=== PATIENT | male | born 1980 | race African-American/Black ===

== ENCOUNTER 2018-01-31 12:52 | Emergency (ER) | payer OTHER ==
[2018-01-31 13:02] VITALS: BP 130/68; PULSE 78; TEMP 98.1; BMI 28.1
--- NOTE | 2018-01-31 13:04 | PDOC ---
History of Present Illness - General Chief Complaint: Pain Stated Complaint: NECK, SHOULDER PAIN Time Seen by Provider: 01/31/18 12:53 History Source: Patient Exam Limitations: No Limitations - History of Present Illness Initial Comments: 01/31/18 12:58 37 y/o male with right sided neck pain since this morning. Denies fall or trauma , but was lifting kids yesterday on a hike. No weakness, numbness or headache. No tick bite. Denies SOB or chest pain. Took TYlenol and Naproxen. No back pain. Had this once before. No N/V/d/C. Worse with movement. Severity: moderate Modifying Factors: improves with: immobilization Associated Symptoms: denies: chest pain, cough, headaches, nausea/vomiting, rash , shortness of breath Past History - Past Medical History Allergies/Adverse Reactions: Allergies Allergy/AdvReac Type Severity Reaction Status Date / Time No Known Allergies Allergy Verified 01/31/18 12:52 Home Medications: Ambulatory Orders Acetaminophen [Tylenol -] 1,000 mg PO ASDIR 01/31/18 Cyclobenzaprine HCl [Flexeril -] 10 mg PO TID #10 tablet 01/31/18 Multivitamin [Multiple Vitamins] 1 each PO DAILY 01/31/18 Review of Systems - Review of Systems Able to Perform ROS?: Yes Is the patient limited Citizen [place] proficient: No Constitutional: No: Chills, Fever Respiratory: No: Cough, Shortness of Breath Cardiac (ROS): No: Chest Pain Musculoskeletal: Yes: Muscle Pain, Neck Pain. No: Back Pain Integumentary: No: Bruising All Other Systems: Reviewed and Negative *Physical Exam - Physical Exam General Appearance: Yes: Nourished, Appropriately Dressed. No: Apparent Distress HEENT: positive: EOMI, WILNER, Normal ENT Inspection, Normal Voice, Symmetrical, Pharynx Normal Neck: positive: Tender (tender to palpation to paracervical muscles on right side, no tenderness to left side or spinous process tenderness, full ROM, no meningeal signs noted), Trachea midline, Normal Thyroid, Supple. negative: Rigid, Carotid bruit, Decreased range of motion Respiratory/Chest: positive: Lungs Clear, Normal Breath Sounds. negative: Chest Tender Cardiovascular: positive: Regular Rhythm, Regular Rate, S1, S2. negative: Edema , JVD, Murmur Vascular Pulses: Femoral (R): 4+, Femoral (L): 4+, Carotid (R): 4+, Carotid (L) : 4+, Dorsalis-Pedis (R): 4+, Doralis-Pedis (L): 4+ Gastrointestinal/Abdominal: positive: Normal Bowel Sounds, Flat, Soft. negative : Tender, Organomegaly, Pulsatile Mass Lymphatic: negative: Adenopathy, Tenderness, Other Musculoskeletal: positive: Normal Inspection. negative: CVA Tenderness Extremity: positive: Normal Capillary Refill, Normal Inspection, Normal Range of Motion. 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 Continue NSAIDs [id number] mg 3x/day as needed If worsen return to ER Pt is in agreement with plan *DC/Admit/Observation/Transfer Diagnosis at time of Disposition: Torticollis - Discharge Dispostion Disposition: HOME Condition at time of disposition: Stable Decision to Admit order: No - Referrals - Patient Instructions Printed Discharge Instructions: DI for Torticollis Additional Instructions: Ice, Motrin, rest Flexeril 10 mg 3x/day as needed If worsen return to ER - Post Discharge Activity Forms/Work/School Notes: Back to Work
== END 2018-01-31 13:20 | disposition home or self-care (01) ==
LOC: FER 12:52
DX: M43.6 Torticollis (principal)
CPT/HCPCS: 99283-25